=== PATIENT | male | born 1975 | race African-American/Black ===

== ENCOUNTER 2017-01-31 17:17 | Emergency (ER) | payer OTHER ==
[~2017-01-31] VITALS: Ht 175.3 cm; Wt 88.6 kg
[2017-01-31] MEDS ORDERED: TRAZ50TA11 PO (17:28)
[2017-01-31] MEDS ORDERED: VITA-176 PO (17:28)
[2017-01-31] MEDS ORDERED: PRAZ5CAP PO (17:28)
[2017-01-31] MEDS ORDERED: MELA3TAB49 PO (17:28)
[2017-01-31] MEDS ORDERED: KETOROLAC 60 MG/2 ML VIAL (J1885) IM ONE (20:15)
[2017-01-31] MEDS ORDERED: IBUP80TA PO (20:21)
[2017-01-31] MEDS ORDERED: ROBA500T PO (20:21)
[2017-01-31] MEDS ORDERED: METHOCARBAMOL 500 MG TAB PO ONE (20:30)
[2017-01-31 20:36] VITALS: BP 140/94
== END 2017-01-31 20:35 | disposition home or self-care (01) ==
LOC: M ED 17:17
DX: Z04.1 Encounter for examination and observation following transport accident (principal); S39.012A Strain of muscle, fascia and tendon of lower back, initial encounter; V43.62XA Car passenger injured in collision with other type car in traffic accident, initial encounter; Y92.410 Unspecified street and highway as the place of occurrence of the external cause; Y93.89 Activity, other specified; Y99.8 Other external cause status; Z79.899 Other long term (current) drug therapy
CPT/HCPCS: 96372; 99283; J1885

== ENCOUNTER 2017-05-30 11:05 | Emergency (ER) | payer OTHER ==
[2017-05-30 12:55] LABS: BASO # 0.1 10^3/uL (0.0-0.2); BASO % 0.8 % (0.0-1.0); EOS # 0.1 10^3/uL (0.0-0.50); EOS % 1.2 % (0.0-3.0); HEMATOCRIT 47.5 % (42.0-52.0); HEMOGLOBIN 16.5 g/dl (14.0-18.0); LYMPH # 1.9 10^3/uL (1.5-4.5); LYMPH % 19.9 % (24.0-44.0); MEAN CORPUSCULAR HEMOGLOBIN 29.6 pg (27.0-33.0); MEAN CORPUSCULAR HGB CONC 34.7 g/dl (32.0-36.5); MEAN CORPUSCULAR VOLUME 85.3 fl (80.0-96.0); MONO # 0.9 10^3/uL (0.0-0.8); MONO % 9.1 % (0.0-5.0); NEUTROPHILS # 6.4 10^3/uL (1.8-7.7); PLATELET COUNT, AUTOMATED 278 10^3/uL (150-450); RED BLOOD COUNT 5.57 10^6/uL (4.30-6.10); RED CELL DISTRIBUTION WIDTH 12.7 % (11.5-14.5); WHITE BLOOD COUNT 9.4 10^3/uL (4.0-10.0)
[2017-05-30] MEDS: ONDANSETRON 4MG/2ML VIAL (J2405) IV (12:56)
[2017-05-30] MEDS: NS 1,000 ML IV (12:56)
[2017-05-30] MEDS: GASTROGRAFIN SOLUTION 30ML PO ×2 (12:56→13:33)
[2017-05-30 13:12] LABS: ALKALINE PHOSPHATASE 68 U/L (45-117); ALT/SGPT 31 U/L (12-78); ANION GAP 8 MEQ/L (8-16); AST/SGOT 19 U/L (7-37); BILIRUBIN,TOTAL 0.3 MG/DL (0.2-1.0); BLOOD UREA NITROGEN 17 MG/DL (7-18); CALCIUM LEVEL 9.1 MG/DL (8.5-10.1); CARBON DIOXIDE LEVEL 27 MEQ/L (21-32); CHLORIDE LEVEL 103 MEQ/L (98-107); CREATININE FOR GFR 1.28 MG/DL (0.70-1.30); GLOMERULAR FILTRATION RATE > 60.0 (>60); GLUCOSE, FASTING 83 MG/DL (70-100); POTASSIUM SERUM 4.4 MEQ/L (3.5-5.1); SODIUM LEVEL 138 MEQ/L (136-145)
[2017-05-30 13:13] LABS: ALBUMIN/GLOBULIN RATIO 1.08 (1.00-1.93); BILIRUBIN,DIRECT < 0.1 MG/DL (0.0-0.2); LIPASE 93 U/L (73-393); TOTAL PROTEIN 7.7 GM/DL (6.4-8.2)
[2017-05-30] MEDS ORDERED: ISOVUE-370 76% 100ML VIAL (Q9967) As Ordered (14:05)
== END 2017-05-30 15:25 | disposition home or self-care (01) ==
LOC: M ED 11:05
DX: K52.9 Noninfective gastroenteritis and colitis, unspecified (principal); F43.10 Post-traumatic stress disorder, unspecified; Z79.899 Other long term (current) drug therapy
CPT/HCPCS: Q9963

== ENCOUNTER 2017-08-02 13:19 | Emergency (ER) | payer OTHER ==
[2017-08-02] MEDS: PERCOCET 5MG/325MG TAB PO (14:58)
[2017-08-02] MEDS: LORazepam 2 MG TAB PO (15:50)
== END 2017-08-02 18:10 | disposition home or self-care (01) ==
LOC: M ED 13:19
DX: M51.26 Other intervertebral disc displacement, lumbar region (principal); M48.061 Spinal stenosis, lumbar region without neurogenic claudication; F43.10 Post-traumatic stress disorder, unspecified; Z79.899 Other long term (current) drug therapy
CPT/HCPCS: 72148

== ENCOUNTER → 2017-08-16 | Outpatient (CLI) | payer OTHER | LOC: M SLEEP 20:30 | DX: G47.33 Obstructive sleep apnea (adult) (pediatric) (principal); G47.61 Periodic limb movement disorder | CPT/HCPCS: 95810 ==

== ENCOUNTER → 2017-10-09 | Outpatient (CLI) | payer OTHER ==
[~2017-10-09] MED LIST: ISOVUE-370 76% 100ML VIAL (Q9967) As Ordered
== END ==
LOC: M RAD 07:21
DX: D49.0 Neoplasm of unspecified behavior of digestive system (principal)
CPT/HCPCS: Q9967